=== PATIENT | male | born 1965 | race Caucasian/White ===

== ENCOUNTER 2022-06-03 14:49 | Emergency (ER) | payer OTHER ==
[2022-06-03] MEDS ORDERED: FLUORESCEIN SODIUM 1 MG/WRAP ONE (15:31)
[2022-06-03 15:45] LABS: Hematocrit 53.6 % (39.6-49.0); MCV 87.3 fL (80-100); MPV 8.7 fL (7.6-11.3); RBC Red Blood Cell Count 6.14 M/uL (4.33-5.43)
[2022-06-03 15:58] LABS: Albumin 3.9 g/dL (3.4-5.0); Bilirubin Total 2.9 mg/dL (0.2-1.0); Potassium 4.3 mmol/L (3.5-5.1); Protein, Total 7.8 g/dL (6.4-8.2)
--- NOTE | 2022-06-03 16:24 | EDPHYS ---
Physician Documentation [facility] Name: Donnell Levy Age: 56 yrs Sex: Male : 1965 Arrival Date: 06/03/2022 Time: 14:58 Bed 4 Private MD: ED Physician Dontrell Piper HPI: 06/03 15:19 This 56 yrs old Male presents to ER via Ambulatory with complaints of Facial Swelling. jr11 15:19 The patient's rash thought to be caused by blistering, erythema. The rash is located on jr11 the face. The rash can be described as vesicular, vesicular, worsening x 1 week. Onset: The symptoms/episode began/occurred 1 week(s) ago. Associated signs and symptoms: Pertinent negatives: None. Severity of symptoms: At their worst the symptoms were severe in the emergency department the symptoms are worse. Pt on acyclovir and cephalexin . Historical: - Allergies: 15:01 No Known Allergies; jh5 - PMHx: 15:01 Hypertensive disorder; Diabetes mellitus; [facility] - Immunization history:: Adult Immunizations up to date. - Social history:: Smoking status: Patient denies any tobacco usage or history of. ROS: 15:19 All other systems are negative. jr11 Exam: 15:19 Constitutional: This is a well developed, well nourished patient who is awake, alert, jr11 and in no acute distress. Head/Face: Normocephalic, atraumatic. Eyes: Extra-ocular motions intact. Lids and lashes normal. Conjunctiva and sclera are non-icteric and not injected. Cornea within normal limits. Periorbital areas with no swelling, redness, or edema. ENT: Nares patent. No nasal discharge, no septal abnormalities noted. Oropharynx with no redness, swelling, or masses, exudates, or evidence of obstruction, uvula midline. Mucous membranes moist. Neck: Trachea midline, no thyromegaly or masses palpated, and no cervical lymphadenopathy. Supple, full range of motion without nuchal rigidity, or vertebral point tenderness. No Meningismus. Chest/axilla: Normal chest wall appearance and motion. Nontender with no deformity. No lesions are appreciated. Cardiovascular: Regular rate and rhythm with a normal S1 and S2. No gallops, murmurs, or rubs. Normal PMI, no JVD. No pulse deficits. Respiratory: Lungs have equal breath sounds bilaterally, clear to auscultation and percussion. No rales, rhonchi or wheezes noted. No increased work of breathing, no retractions or nasal flaring. Abdomen/GI: Soft, non-tender, with normal bowel sounds. No distension or tympany. No guarding or rebound. No evidence of tenderness throughout. Back: No spinal tenderness. No costovertebral tenderness. Full range of motion. Skin: R face with significant erythma, serous drainage, R eye injected, no TM involvement Vital Signs: 14:59 BP 164 / 88; Pulse 95; Resp 18; Temp 98.6; Pulse Ox 98% ; Weight 103.42 kg; Height 5 jh5 ft. 9 in. (175.26 cm); Pain 7/10; 17:37 BP 148 / 78; Pulse 68; Resp 17; Pulse Ox 98% ; Pain 3/10; jh6 14:59 Body Mass Index 33.67 (103.42 kg, 175.26 cm) 5 MDM: 15:15 Patient medically screened. jr11 15:19 Differential diagnosis: Zoster. Data reviewed: vital signs, nurses notes. jr11 15:50 ED course: R eye with scleral injection and areas of fluorescein uptake around limbus jr11 concerning for herpes zoster ophthalmicus. Pt started acyclovir yesterday. . 16:21 ED course: Spoke to Dr Harrison, rec Valtre 1g TID, Julio César 300mg TID, mup, states these cases jr11 do well OP and to trial, no indication for admission at this time, Pt will return if worsening. . 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 jr11 06/03 15:16 Order name: CBC w/o diff; Complete Time: 15:59 jr11 06/03 15:16 Order name: CMP; Complete Time: 15:59 jr11 Administered Medications: 15:45 Drug: Fluorescein Strip 1 strip Route: Ophthalmic; Site: right eye; [facility] 16:41 Drug: Acyclovir 5 mg/kg Route: IVPB; Site: left antecubital; 6 Disposition Summary: 06/03/22 16:23 Discharge Ordered Location: Home [facility] Condition: Stable [facility] Diagnosis - Herpes Zoster Ophthalmicus jr11 - herpes Zoster jr11 Followup: jr11 - With: Joshua Harrison MD - When: 2 - 3 days - Reason: Re-evaluation by your physician Discharge Instructions: - Discharge Summary Sheet jr11 - Herpes Keratitis jr11 Forms: - Medication Reconciliation Form jr11 - Thank You Letter jr11 - Antibiotic Education jr11 - Prescription Opioid Use jr11 Prescriptions: - Valtrex 1 gram Oral tablet - take 1 tablet by ORAL route 3 times per day for 7 days; 21 tablet; Refills: 0, jr11 Product Selection Permitted - gabapentin 300 mg Oral capsule - take 1 capsule by ORAL route 3 times per day; 30 capsule; Refills: 0, Product jr11 Selection Permitted - Prednisone 20 mg Oral Tablet - take 3 tablets by ORAL route once daily for 5 days; 15 tablet; Refills: 0, jr11 Product Selection Permitted Signatures: Dispatcher [employer] [place] Desai RN RN jh5 Giovanna Jones RN RN jh6 Dontrell Piper MD MD jr11
--- NOTE | 2022-06-03 16:24 | ER ---
Nurse's Notes [facility] Name: Donnell Levy Age: 56 yrs Sex: Male : 1965 Arrival Date: 06/03/2022 Time: 14:58 Bed 4 Private MD: Diagnosis: Herpes Zoster Ophthalmicus;herpes Zoster Presentation: 06/03 14:59 Chief complaint: Patient states: cellulitis not getting better with oral antibiotics; 5 PCP told him to come here for IV antibiotics. Coronavirus screen: Vaccine status: Patient reports being unvaccinated. Client denies travel out of the [place] in the last 14 days. Ebola Screen: Patient negative for fever greater than or equal to 101.5 degrees Fahrenheit, and additional compatible Ebola Virus Disease symptoms Patient denies exposure to infectious person. Patient denies travel to an Ebola-affected area in the 21 days before illness onset. Initial Sepsis Screen: Does the patient meet any 2 criteria? No. Patient's initial sepsis screen is negative. Does the patient have a suspected source of infection? No. Patient's initial sepsis screen is negative. Risk Assessment: Do you want to hurt yourself or someone else? Patient reports no desire to harm self or others. Onset of symptoms was May 27, 2022. 14:59 Method Of Arrival: Ambulatory [facility] 14:59 Acuity: JENNIFER 2 5 Triage Assessment: 15:01 General: Appears uncomfortable, well groomed, well developed, Behavior is calm, jh5 cooperative, appropriate for age. Pain: Complains of pain in face. Historical: - Allergies: 15:01 No Known Allergies; jh5 - PMHx: 15:01 Hypertensive disorder; Diabetes mellitus; 5 - Immunization history:: Adult Immunizations up to date. - Social history:: Smoking status: Patient denies any tobacco usage or history of. Screenin:30 Abuse screen: Denies threats or abuse. Denies injuries from another. Nutritional 6 screening: No deficits noted. Tuberculosis screening: No symptoms or risk factors identified. Fall Risk IV access (20 points). Assessment: 15:35 General: Appears uncomfortable, Behavior is calm, cooperative. Pain: Complains of pain jh6 in right eye, right cheek, right ear and right jaw Pain currently is 5 out of 10 on a pain scale. Quality of pain is described as burning, sharp, shooting, Is continuous. Neuro: No deficits noted. Derm: Skin has blisters on blisters and lesions to rt side of face encompassing rt orbit and rt side of upper and lower lip. no swelling associated with tongue or throat. 16:35 Reassessment: No changes from previously documented assessment. Patient and/or family jh6 updated on plan of care and expected duration. Pain level reassessed. Patient is alert, oriented x 3, equal unlabored respirations, skin warm/dry/pink. 17:39 Reassessment: No changes from previously documented assessment. Patient and/or family jh6 updated on plan of care and expected duration. Pain level reassessed. Patient is alert, oriented x 3, equal unlabored respirations, skin warm/dry/pink. verbal understanding of d/c instructions and follow up over the next couple of days,. Vital Signs: 14:59 BP 164 / 88; Pulse 95; Resp 18; Temp 98.6; Pulse Ox 98% ; Weight 103.42 kg; Height 5 5 ft. 9 in. (175.26 cm); Pain 7/10; 17:37 BP 148 / 78; Pulse 68; Resp 17; Pulse Ox 98% ; Pain 3/10; jh6 14:59 Body Mass Index 33.67 (103.42 kg, 175.26 cm) 5 ED Course: 14:58 Patient arrived in ED. mr 15:01 Triage completed. 5 15:01 Giovanna Jones, RN is Primary Nurse. jh6 15:01 Arm band placed on right wrist. 5 15:03 Dontrell Piper MD is Attending Physician. jr11 15:30 CMP Sent. jh6 15:30 CBC w/o diff Sent. jh6 15:37 Inserted saline lock: 20 gauge in right antecubital area, using aseptic technique. jh6 Blood collected. 15:38 Bed in low position. Call light in reach. Side rails up X 1. Adult w/ patient. jh6 15:38 Assist provider with eye exam of right eye. using fluorescein stain. 6 16:23 Joshua Harrison MD is Referral Physician. jr11 17:55 IV discontinued, intact, bleeding controlled, No redness/swelling at site. Pressure 6 dressing applied. Administered Medications: 15:45 Drug: Fluorescein Strip 1 strip Route: Ophthalmic; Site: right eye; jh6 16:41 Drug: Acyclovir 5 mg/kg Route: IVPB; Site: left antecubital; [facility] Medication: 15:38 VIS not applicable for this client. [facility] Outcome: 16:23 Discharge ordered by . raul 18:35 Discharged to home [facility] 18:35 Condition: good 18:35 Discharge instructions given to Instructed on discharge instructions, Demonstrated understanding of instructions, Prescriptions given X 4. 18:35 Patient left the ED. [facility] Signatures: Courtney Bolden Jessica, RN RN jh5 Giovanna Jones RN RN jh6 Dontrell Piper MD MD jr11
[2022-06-03] MEDS ORDERED: ACYCLOVIR INJ 500 MG in NA CHLORIDE 0.9% 100 ML IVPB ONE (17:00)
[2022-06-04 21:04] VITALS: TEMP 98.6; O2SAT 98
[2022-06-04 21:10] VITALS: BP 148/78
== END 2022-06-03 18:35 | disposition home or self-care (01) ==
LOC: ER 14:49
DX: B02.30 Zoster ocular disease, unspecified (principal); I10 Essential (primary) hypertension; E11.9 Type 2 diabetes mellitus without complications
CPT/HCPCS: 36415; 85027; 80053; 96374; 99284; J0133

== ENCOUNTER 2023-05-25 07:31 | Day surgery (SDC) | payer OTHER ==
[2023-05-20 15:26] LABS: Absolute Lymphocytes (CBC) 2.2 K/uL (0.7-4.9); Hematocrit 50.1 % (39.6-49.0); Lymphocytes % 25.6 % (15.3-44.8); MCV 78.9 fL (80-100); MPV 8.7 fL (7.6-11.3); Platelets 209 thou/uL (152-406); RBC Red Blood Cell Count 6.35 M/uL (4.33-5.43)
--- NOTE | 2023-05-20 15:33 | RAD REPORT ---
EXAM DESCRIPTION: Bhavana Massey And Maryjane (2 Views)05/20/2023 3:17 pm CLINICAL HISTORY: Preop. Hypertension COMPARISON: None FINDINGS: The lungs appear clear of acute infiltrate. The heart is normal size IMPRESSION: No acute abnormalities displayed
[2023-05-20 15:35] LABS: Anisocytosis 1+; Blood Morphology Comment NOTED (NOT SEEN); Platelet Estimate ADEQ; White Blood Cell Scan OK (OK)
[2023-05-20 15:38] LABS: Albumin 3.8 g/dL (3.4-5.0); Bilirubin Direct 0.3 mg/dL (0-0.2); Bilirubin Indirect, Calculated 1.4 mg/dL (0.2-0.8); Bilirubin Total 1.7 mg/dL (0.2-1.0); Potassium 3.9 mEq/L (3.5-5.1); Protein, Total 6.9 g/dL (6.4-8.2)
--- NOTE | 2023-05-23 19:12 | EKG ---
Test Date: 2023-05-20 Test Time: 15:06:38 Junior Account Executive: TOSHIA MEASUREMENT RESULTS: Intervals: Rate: 70 NV: 198 QRSD: 102 QT: 394 QTc: 425 Parkman: P: 56 NV: 198 QRS: 71 T: 6 INTERPRETIVE STATEMENTS: Normal sinus rhythm Normal ECG Compared to ECG 04/07/1999 20:08:00 Sinus bradycardia no longer present Myocardial infarct finding no longer present Electronically Signed On 05-23-23 19:07:46 CDT by Raciel Lopez
[2023-05-25] MEDS: NA CHLORIDE 0.9% 1,000 ML ONE ×3 (08:00→08:30)
[2023-05-25] MEDS ORDERED: CEFOXITIN SODIUM 1 GM/VIAL ONE (08:01)
[2023-05-25] MEDS ORDERED: ROCURONIUM 50 MG/5 ML VIAL IV ONE (08:11)
[2023-05-25] MEDS ORDERED: FENTANYL CITR 100 MCG/2 ML ONE (08:11)
[2023-05-25] MEDS ORDERED: propofoL 200 MG/20 ML VIAL IV ONE (08:11)
[2023-05-25] MEDS ORDERED: MIDAZOLAM HCL 2 MG/2 ML INJ ONE (08:11)
[2023-05-25] MEDS ORDERED: KETOROLAC 30 MG/ML INJ ONE (08:12)
[2023-05-25] MEDS ORDERED: dexAMETHasone 10 MG/ML VIAL ONE (08:12)
[2023-05-25] MEDS ORDERED: ONDANSETRON 4 MG/2 ML VIAL ONE (08:16)
[2023-05-25] MEDS ORDERED: LIDOCAINE 2% MPF 5 ML VIAL ONE (08:16)
[2023-05-25] MEDS ORDERED: CEFAZOLIN SODIUM 1 GM/VIAL ONE (08:39)
[2023-05-25] MEDS ORDERED: GLYCOPYRROLATE 0.2 MG/ML SYR ONE ×2 (09:15→09:16)
[2023-05-25] MEDS ORDERED: EPHEDRINE SULF 50 MG/ML VIAL ONE (09:16)
--- NOTE | 2023-05-25 09:21 | P.BOP ---
Preoperative diagnosis: acute cholecystitis, symptomatic cholelithiasis Postoperative diagnosis: same Primary procedure: Laparoscopic cholecystectomy Exhibit Preparator: CARTER SINGH (CODE NUMBER STAMPER) Estimated blood loss: <10cc Specimen: gb Findings: as above Anesthesia: General Complications: None Transferred to: Recovery Room Condition: Good
[2023-05-25] MEDS ORDERED: Mastisol Adhesive Liq ONE (09:33)
[2023-05-25] MEDS ORDERED: CODEINE 30MG/APAP 300MG TAB ONE (10:44)
[2023-05-25 11:02] VITALS: BP 134/88; TEMP 96.8; O2SAT 99
--- NOTE | 2023-05-25 20:29 | OP ---
Date of Procedure: 05/25/2023 Surgeon: Geo Saldaña MD Automobile Rental Representative: Maci Cervantes. Preoperative Diagnoses: Acute cholecystitis, symptomatic cholelithiasis. Postoperative Diagnoses: Acute cholecystitis, symptomatic cholelithiasis. Procedure: Laparoscopic cholecystectomy. Estimated Blood Loss: Less than 10 cc. Specimen: Gallbladder. Anesthesia: General plus local. Indication: This is a case of a 57-year-old patient who comes to us with the above diagnosis. Fully explained the benefits, alternatives, and risks of laparoscopic possible open cholecystectomy which include, but not limited to, infection, bleeding, damage to adjacent structures, anesthesia complicat ion, choledocholithiasis, bile leak, pancreatitis, GA, and even . He also understands this may not relieve any symptoms. He might need more than one surgical intervention. He understood, signed a consent. Description Of Procedure: Patient was brought to the operating room, placed in supine position. Ane sthesia was done without complication. Abdominal area was prepped and draped in a sterile fashion. Marcaine 0.5% was injected for local anesthetic followed by sharp incision of the skin in the infraum bilical region. Incision was carried down to fascia, which was opened under direct vision. Peritone um was encountered, opened under direct vision. Vicryl #1 placed inside the fascia. Jose trocar w as carefully introduced. Pneumoperitoneum was obtained. I placed 3 more trocars, 5 mm each one of t hem, 1 in epigastric area, 2 in the right upper quadrant using the same technique which consisted of local anesthetic, sharp incision of the skin and introduction of the trocars under direct vision. We proceeded to put a grasper in the fundus of the gallbladder, another grasper in the infundibulum, re tracting the gallbladder in the inferolateral fashion exposing the triangle of Calot and obtaining cr itical view. Cystic duct and cystic artery were clearly isolated, freed circumferentially and a conn ection between those and the gallbladder were clearly identified. I proceeded to ligate those by jeevan ng at least 3 clips proximal, 1 clip distal, ligation in the middle. Same was done with the cystic a rtery. No bile leak. No bleeding. The gallbladder was removed from the liver using Bovie cauterize r and removed from the abdominal cavity using EndoCatch through the umbilical incision. The area was inspected once again. No bile leak. No bleeding. At that moment, I proceeded to remove trocars un tom direct vision, deflated pneumoperitoneum, closing the fascia with #1 Vicryl. Irrigated subcutane ous tissue, closed that with 3-0 chromic, and the skin with 3-0 chromic. Sponge count and instrument counts were correct. Patient tolerated the procedure well. Patient sent to Recovery in stable cond ition. ROSEMARIE/MODL Voice ID: [id number] Report ID: [id number]
--- NOTE | 2023-05-25 20:29 | DS ---
Date of Discharge: 05/25/2023 Diagnoses: Acute cholecystitis, symptomatic cholelithiasis. Procedure: Laparoscopic cholecystectomy. Disposition: Home. Activity: As tolerated. No heavy lifting. Plan: Follow up in my office in 1 week. Call for appointment at [phone]. Keep area dry for 48 jannet rs, then may shower. Keep Steri-Strips intact. ROSEMARIE/JAVI Voice ID: [id number] Report ID: [id number]
== END 2023-05-25 10:55 | disposition home or self-care (01) ==
LOC: OR 07:31
PROVIDERS: ATTEND Surgery
PROC: 0FT44ZZ Resection of Gallbladder, Percutaneous Endoscopic Approach (ICD-10-PCS; principal; 2023-05-25 08:45)
DX: K80.10 Calculus of gallbladder with chronic cholecystitis without obstruction (principal)
CPT/HCPCS: 93005; 85025; 80048; 36415; 82947 ×2; 80076; 88304; 83690; 71046; 47600; J2704; J2001; J2250; J3010; J1100; J0694; J2405; J7030; J0690